=== PATIENT | female | born 1945 | race Caucasian/White ===

== ENCOUNTER → 2025-02-16 | Outpatient (CLI) | payer MEDICARE, OTHER, SELFPAY ==
--- NOTE | 2025-02-16 10:07 | BI_ITS ---
EXAM: SCRN MAMM (CAD)W/KEM BILAT DATE: 02/16/2025 CLINICAL HISTORY: F, Age 79 y/o , SCREENING TECHNIQUE: Procedure Code: [id number] Modality: MG Procedure: SCRN MAMM (CAD)W/KEM BILAT COMPARISON: Prior exam(s) dated 10/24/2022 FINDINGS: TISSUE DENSITY: There are scattered areas of fibroglandular density. Bilateral Breast Mammographic Findings: No significant masses, calcifications or other abnormalities are identified. Benign-appearing round microcalcifications are seen in both breasts. BI/SCRN MAMM (CAD)W/KEM BILAT IMPRESSION: Benign screening mammogram. OVERALL FINAL ASSESSMENT BI-RADS 2: BENIGN RECOMMENDATION: Routine annual follow-up in 1 Year A letter with findings and recommendations will be mailed to the patient. Reading Location: [id number]
== END | disposition home or self-care (01) ==
DX: Z12.31 Encounter for screening mammogram for malignant neoplasm of breast (principal)
CPT/HCPCS: 77063; 77067

== ENCOUNTER 2025-05-12 15:11 | Emergency (ER) | payer MEDICARE, OTHER, SELFPAY ==
[2025-05-12 15:11] VITALS: BP 161/85; PULSE 88; RESP 16; TEMP 36.6; O2SAT 99; BMI 32.1
--- NOTE | 2025-05-12 16:05 | EX.ED.GENINJ ---
HPI History of Present Illness Chief Complaint: Fall Narrative Narrative: Patient is a 80 female presenting to the emergency department after a fall. Patient states that she has age-related macular degeneration and her depth perception is off. States that she was walking downstairs and did not see the next stair and she fell forwards. States that she was able to grab onto something but her right leg got tangled up underneath of her. She denies hitting her head or any loss of consciousness. Denies any neck or back pain. She is not on any oral anticoagulation. Took aspirin prior to arrival for pain control. She is complaining of right knee, tib-fib and foot pain. She was able to ambulate into the emergency department. [facility] Medical History Seasonal allergies AMD (age related macular degeneration) Back pain Knee pain Diabetes History of skin cancer Home Medications ?Medication ?Instructions ?Recorded ?Last Taken ?Type amlodipine 5 mg tablet 5 mg PO QDAY BP 01/30/24 05/12/25 History carvedilol 3.125 mg tablet 3.125 mg PO BID HBP 01/30/24 05/12/25 History fexofenadine 180 mg tablet 180 mg PO DAILY allergy 01/30/24 05/11/25 History (Kamila Allergy) mv-mn-folic 200 mcg-vit K 15 1 cap PO BID supplement 01/30/24 05/12/25 History mcg-lutein 5 mg-zeaxanthin 1 mg capsule (PreserVision AREDS 2 Plus Multivit) olmesartan 40 mg tablet 40 mg PO QDAY HBP 01/30/24 05/12/25 History Lactobacillus acidophilus 500 1 tab PO DAILY probiotic 05/12/25 05/11/25 History million cell-fructooligosac 50 mg tablet cholecalciferol (vitamin D3) 50 50 mcg PO DAILY supplement 05/12/25 05/11/25 History mcg (2,000 unit) capsule fish oil-dha-epa 1,200 mg-144 1 cap PO DAILY supplement 05/12/25 05/11/25 History mg-216 mg capsule mv-min-vit C 1,000 mg-elderberry 1 ea PO DAILY supplement 05/12/25 05/11/25 History 50 mg-herb 35.5mg effervescent tablet (Airborne Elderberry) omeprazole 40 mg capsule,delayed 40 mg PO DAILY GERD 05/12/25 05/12/25 History release Allergy/AdvReac Type Severity Reaction Status Date / Time No Known Allergies Allergy Verified 05/12/25 15:13 Family History Other Cancer Diabetes Heart disease Surgical History Hx of decompression of ulnar nerve History of 2 sections History of cholecystectomy History of lateral meniscus repair of left knee History of cataract extraction Social History Smoking Status: Never smoker alcohol intake: current substance use type: does not use ROS ROS ED ROS Narrative see HPI EXAM Physical Exam Narrative Exam Narrative: Vital signs: Reviewed General: Alert and oriented x 3. No acute distress, well-appearing, nontoxic. HEENT: Head is normocephalic and atraumatic. No cephalhematoma, lacerations or abrasions to the head or face. Sinuses nontender, pupils equal round and reactive. Nares are patent. Oropharynx and throat exams normal. Neck: Supple without lymphadenopathy nontender. No midline cervical spinal tenderness palpation. No step-offs or deformities. Cardiovascular: Regular rate and rhythm, no murmurs. No rubs or gallops. Normal S1 and S2 Respiratory: Clear to auscultation bilaterally. No wheezes, rales, rhonchi Chest: Chest wall is atraumatic and nontender to palpation. No crepitus, erythema or ecchymosis. Abdominal: Soft and nontender. Normal bowel sounds. No guarding or rebound. Nonsurgical abdomen Extremities: Hips are stable and nontender to palpation. Bilateral upper extremities and left lower extremity are atraumatic and nontender to palpation with normal active range of motion. There is very mild right knee tenderness to palpation, anterior romo tenderness to palpation and distal midfoot tenderness to palpation. There is no tenderness to palpation of the medial or lateral malleoli. There is no obvious deformities. DP and PT pulses are intact bilaterally. Motor and sensation is intact. Normal strength at right hip, knee and ankle. Back: No midline thoracic or lumbar spine palpation. No step-offs or deformities. Skin: No rash or redness. Neurological: Cranial nerves II through XII are grossly intact. Normal strength and sensation. Normal cerebellar function The rest of the physical exam is unremarkable Const Vital Signs: 05/12/25 15:11 05/12/25 15:38 05/12/25 17:50 Temperature 98 F 98 F Temperature Source Oral Pulse Rate 88 88 Respiratory Rate 16 16 Respiratory Effort Normal Non-Labored Respiratory Depth Normal Respiratory Pattern Normal Blood Pressure 161/85 H 148/70 H Blood Pressure Mean 110 96 Pulse Ox 99 99 Oxygen Delivery Method Room Air Room Air MDM MDM MDM Narrative Medical decision making narrative: Patient is a 80-year-old female presenting to the emergency department for a mechanical fall. Patient was seen and examined. Vitals are stable. Patient resting in bed comfortably no acute distress. Patient was offered analgesic but declines. Patient did not hit her head or have any loss of consciousness, she is not on any oral anticoagulation, sensitive brain not indicated. She has no pain other than in her right lower leg. Will obtain x-ray imaging of the knee, tib-fib and foot. I do not suspect any fractures or dislocations given there is no obvious deformities and patient has normal range of motion. X-rays were reviewed by myself and there is no fracture or dislocation noted. Radiology read in agreement. Patient ambulates without difficulty. Her and her were updated on the negative imaging. Patient discharged from the Emergency Department. I do not feel that the patient's evaluation reveals any acute reason for admission at this time. I instructed them to either follow-up with their primary care physician or promptly return to the Emergency Department for reevaluation should symptoms worsen or new symptoms develop. I explained what symptoms would indicate the need to return to the emergency department. Shared decision making was used. The patient voiced understanding of the treatment plan and is agreeable with it. Clinical impression Fall Contusion of leg History & Record Review Discussion w/independent historian: Patient and Significant other Radiography X-Ray: Read by ED Physician and Normal Diagnostic Testing: Clinical Impression(s) from Imaging Studies Foot X-Ray 05/12/25 16:35 IMPRESSION: No acute fracture or dislocation. Reading Location: [facility] Knee X-Ray 05/12/25 16:35 IMPRESSION: As above. [facility] Tibia/Fibula X-Ray 05/12/25 16:35 IMPRESSION: As above. Reading [facility] Discharge Plan Triage Chief Complaint: Fall ED Provider: Susi Servin Dx/Rx/DC Orders Clinical Impression: Fall, Contusion of leg Instructions: ED Soft Tissue Contusion, ED Fall Prevention, ED RICE Prescriptions: No Action carvedilol 3.125 mg tablet 3.125 mg PO BID amlodipine 5 mg tablet 5 mg PO QDAY olmesartan 40 mg tablet 40 mg PO QDAY fexofenadine [Kamila Allergy] 180 mg tablet 180 mg PO DAILY PreserVision AREDS 2 Plus MV 200 mcg-15 mcg- 5 mg-1 mg capsule 1 cap PO BID omeprazole 40 mg capsule,delayed release(DR/EC) 40 mg PO DAILY fish oil-dha-epa 1,200-144-216 mg capsule 1 cap PO DAILY cholecalciferol (vitamin D3) 50 mcg (2,000 unit) capsule 50 mcg PO DAILY Lactobac acidoph-fructooligos 500 million cell-50 mg tablet 1 tab PO DAILY Airborne Elderberry 1,000 mg-50 mg-35.5 mg tablet, effervescent 1 ea PO DAILY Primary Care Provider: Care Physician,No Primary Referrals: sarmad redmond [Other] Colin King MD [Med Staff - Active Staff, Family Practice] - As soon as possible Activity Restrictions/Additional Instructions: Your evaluation in the Emergency Department did not reveal any acute reason for admission. However, I want to emphasize that you may be early in the course of a disease process or illness even if it is not present. For this reason you should follow-up within 24 hours for reevaluation with either your primary care physician or if necessary back here in the Emergency Department. You should return to the Emergency Department immediately if your symptoms worsen or new symptoms develop. Print Language: Chinese Disposition Disposition: Home, Self Care Discharge Date/Time: 05/12/25 17:52
--- NOTE | 2025-05-12 16:35 | RAD_ITS ---
PROCEDURE: FOOT MIN 3 VIEWS 05/12/2025 REASON FOR EXAM: PAIN, FALL TECHNIQUE: Procedure Code: RADFO Modality: DX Procedure: FOOT MIN 3 VIEWS Laterality: Right COMPARISON: None. FINDINGS: No acute fracture or dislocation. Alignment is anatomic. 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 Small plantar calcaneal spur. No marked soft tissue swelling. RAD/Foot min 3 Views IMPRESSION: No acute fracture or dislocation. Reading Location: [id number]
--- NOTE | 2025-05-12 16:35 | RAD_ITS ---
PROCEDURE: KNEE 4 OR MORE VIEWS; TIBIA FIBULA 2 VIEWS 05/12/2025 REASON FOR EXAM: FALL, PAIN; PAIN, FALL TECHNIQUE: Procedure Code: RADKN; RADTF Modality: DX Procedure: KNEE 4 OR MORE VIEWS; TIBIA FIBULA 2 VIEWS COMPARISON: None FINDINGS: Osseous structures intact. Moderate degenerative changes. Soft tissues unremarkable. No knee effusion. Remainder of femur is normal. RAD/Tibia & Fibula 2 Views IMPRESSION: As above. [facility]
--- NOTE | 2025-05-12 16:35 | RAD_ITS ---
PROCEDURE: KNEE 4 OR MORE VIEWS; TIBIA FIBULA 2 VIEWS 05/12/2025 REASON FOR EXAM: FALL, PAIN; PAIN, FALL TECHNIQUE: Procedure Code: RADKN; RADTF Modality: DX Procedure: KNEE 4 OR MORE VIEWS; TIBIA FIBULA 2 VIEWS COMPARISON: None FINDINGS: Osseous structures intact. Moderate degenerative changes. Soft tissues unremarkable. No knee effusion. Remainder of femur is normal. RAD/Knee 4 or More Views IMPRESSION: As above. [facility]
[2025-05-12 17:50] VITALS: BP 148/70; PULSE 88; RESP 16; TEMP 36.6; O2SAT 99
== END 2025-05-12 17:52 | disposition home or self-care (01) ==
PROVIDERS: Emergency Provider Student in an Organized Health Care Education/Training Program; Visit Provider Student in an Organized Health Care Education/Training Program
DX: S80.11XA Contusion of right lower leg, initial encounter (principal); E11.9 Type 2 diabetes mellitus without complications; H35.30 Unspecified macular degeneration; W10.9XXA Fall (on) (from) unspecified stairs and steps, initial encounter; Y93.01 Activity, walking, marching and hiking
CPT/HCPCS: 73560; 73564; 73590; 73630; 99282